=== PATIENT | female | born 1975 | race Two or more races ===

== ENCOUNTER 2019-01-03 15:09 | Emergency (ER) | payer MEDICAID ==
[~2019-01-03] VITALS: Ht 149.9 cm; Wt 83.9 kg
[~2019-01-03 15:09] MED LIST: ATENPOW10; SERAQUIL
[2019-01-03 15:31] VITALS: BP 166/101
== END 2019-01-03 17:16 | disposition left against medical advice (07) ==
LOC: ER 15:13
DX: E86.0 Dehydration (principal); Z53.29 Procedure and treatment not carried out because of patient's decision for other reasons